=== PATIENT | female | born 1990 | race Caucasian/White ===

== ENCOUNTER 2021-02-28 11:44 | Emergency (ER) | payer OTHER ==
[~2021-02-28] VITALS: Ht 160 cm; Wt 61.0 kg
[2021-02-28] MEDS ORDERED: ACETAMINOPHEN 325MG TABLET PO ONE (17:15)
[2021-02-28 17:36] LABS: CLARITY URINE CLEAR (CLEAR); COLOR URINE YELLOW (YELLOW); KETONES URINE NEGATIVE (NEGATIVE); LEUKOCYTE ESTERASE URINE TRACE (NEGATIVE); NITRITE URINE NEGATIVE (NEGATIVE); OCCULT BLOOD URINE NEGATIVE (NEGATIVE); PROTEIN URINE NEGATIVE (NEGATIVE); SPECIFIC GRAVITY URINE 1.005 (1.005-1.030); UROBILINOGEN URINE 0.2 E.U./dL (0.2-1.0)
[2021-02-28 18:59] LABS: BASOPHILS % 0.4 % (0.0-2.0); EOSINOPHILS % 2.5 % (0.0-5.0); HEMATOCRIT. 42.5 % (36.0-48.0); HEMOGLOBIN. 14.2 g/dL (12.0-16.0); LYMPHOCYTES % 36.2 % (20.0-50.0); MEAN CORPUSCULAR HEMOGLOBIN 27.7 pg (28.0-32.0); MEAN CORPUSCULAR VOLUME 83.1 fL (81.0-99.0); MEAN PLATELET VOLUME 9.3 fl (7.4-10.4); MONOCYTES % 4.8 % (2.0-8.0); NEUTROPHILS % 56.1 % (40.0-76.0); PLATELET 328 x1000/uL (130-400); RED BLOOD CELL COUNT 5.12 mill/uL (4.2-5.4); RED CELL DISTRIBUTION WIDTH 12.5 % (11.6-14.6)
[2021-02-28 19:09] LABS: CHLORIDE 107 mEq/L (98-107)
[2021-02-28 19:35] LABS: HCG SCREEN NEGATIVE
[2021-02-28] MEDS ORDERED: IBUP-2028 MT (19:40)
[2021-02-28 20:46] VITALS: BP 121/80
== END 2021-02-28 20:49 | disposition home or self-care (01) ==
LOC: ER 11:44
DX: R10.31 Right lower quadrant pain (principal); N83.201 Unspecified ovarian cyst, right side
CPT/HCPCS: 36415; 76830; 76856; 80053; 81003; 81025; 84703; 85025; 99284